=== PATIENT | male | born 1930 | race Caucasian/White ===

== ENCOUNTER 2018-11-10 10:30 | Emergency (ER) | payer MEDICARE ==
--- NOTE | 2018-11-10 11:17 | RAD ---
Left elbow 4 views INDICATION: Fall with left elbow pain COMPARISON: None FINDINGS: No acute fracture or subluxation is evident. There is prominent soft tissue swelling involv ing the posterior soft tissues of the left elbow. No joint capsular distention is evident. The radiocapitellar alignment is noted to be normal. There is enthesopathic change off of the lateral hum eral epicondyle and olecranon process. 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 IMPRESSION: No acute fracture or subluxation demonstrated. Prominent soft tissue swelling overlying t he posterior left elbow. Mild osteoarthrosis of the left elbow.
== END 2018-11-10 11:20 | disposition home or self-care (01) ==
LOC: SCSER 10:30
DX: S50.02XA Contusion of left elbow, initial encounter (principal); I25.2 Old myocardial infarction; E11.9 Type 2 diabetes mellitus without complications; E78.5 Hyperlipidemia, unspecified; I10 Essential (primary) hypertension; Z79.82 Long term (current) use of aspirin; Z79.899 Other long term (current) drug therapy; W22.8XXA Striking against or struck by other objects, initial encounter

== ENCOUNTER 2018-12-02 14:45 | Outpatient (CLI) | payer MEDICARE ==
[2018-12-02 15:12] LABS: #Basophils 0.1 thou/uL (0.0-0.2); #Eosinphils 0.1 thou/uL (0.0-0.7); #Lymphocytes 2.1 thou/uL (1.20-3.40); #Monocytes 0.8 thou/uL (0.11-0.59); #Neutrophils 6.9 thou/uL (1.40-6.50); %Basophils 1.1 % (0.0-1.0); %Eosinophils 0.9 % (0.0-10.0); %Lymphocytes 20.9 % (21.0-51.0); %Monocytes 7.6 % (0.0-10.0); %Neutrophils 69.5 % (42.0-75.0); Hemoglobin 14.4 g/dL (14.0-18.0); Mean Corpuscular HGB CONC 33.6 g/dL (32.0-36.0); Mean Corpuscular Hemoglobin 31.9 pg (27.0-31.0); Mean Corpuscular Volume 94.9 fL (78.0-98.0); Mean Platelet Volume 6.2 fL (7.4-10.4); Platelet Count 323 thou/uL (130-400); RBC Distribution Width 12.4 % (11.5-14.5); Red Blood Cell (RBC) Count 4.52 mill/uL (4.70-6.10); White Blood Cell (WBC) Count 9.9 thou/uL (4.8-10.8)
[2018-12-02 15:16] LABS: Bilirubin Negative (Negative); Blood, Urine Negative (Negative); Clarity Clear (Clear); Glucose, Urine (Dipstick) 100 mg/dL (Negative); Leukocyte Negative (Negative); Nitrite Negative (Negative); Protein, Urine (Dipstick) Trace mg/dL (Neg-Trace)
[2018-12-02 15:25] LABS: ALT (SGPT) 16 U/L (8-55); AST (SGOT) 13 U/L (5-34); Albumin 4.1 g/dL (3.4-4.8); Alkaline Phosphatase 56 U/L (40-150); Anion Gap 13 mmol/L (10-20); BUN (Urea Nitrogen) 14 mg/dL (8.4-25.7); Bilirubin, Total 1.1 mg/dL (0.2-1.2); Calc. Creatinine Clearance 0 mL/min (70-130); Calcium 10.1 mg/dL (7.8-10.44); Carbon Dioxide 30 mmol/L (23-31); Chloride 99 mmol/L (98-107); Estimated GFR-MDRD 67; Globulin 3.6 g/dL (2.4-3.5); Glucose 173 mg/dL (83-110); Magnesium 2.6 mg/dL (1.6-2.6); Potassium 3.9 mmol/L (3.5-5.1); Protein, Total 7.7 g/dL (5.8-8.1); Sodium 138 mmol/L (136-145)
--- NOTE | 2018-12-02 15:34 | RAD ---
CHEST PA AND LATERAL: HISTORY: Cough. FINDINGS: The heart size is normal. The aorta is tortuous. There are plates of linear atelectasis of the lung bases. No lobar consolidation, pneumothoraces, or pleural effusions are seen. There are degenerati ve changes in the spine. IMPRESSION: No radiographic evidence of pneumonia. POS: [facility]
--- NOTE | 2018-12-02 15:36 | CT ---
CT HEAD WITHOUT IV CONTRAST COMPARISON: None HISTORY: Headache and confusion. Patient fell on 11/10/2018 TECHNIQUE: Axial CT imaging at 5 mm intervals from vertex through skull base without contrast FINDINGS: There is increased density related to parenchymal hematoma in the right temporal lobe which measures 6.8 cm x 3.2 cm with associated vasogenic edema. There is evidence of sulcal effacement as well as mass effect on the occipital and temporal horns of the right lateral ventricle. No significant shift of midline structures is appreciated. No other areas of hemorrhage are identified. There are a few low-density areas seen in the periventri cular white matter which are nonspecific but likely reflective of chronic small vessel ischemic changes.There is no hydrocephalus. A mucus retention cyst is present in the left maxillary antrum. Osseous structures appear intact.No calvarial fracture is seen. Vascular calcifications are seen in the carotid siphons and involving the distal vertebral arteries. IMPRESSION: 1. Parenchymal hemorrhage/hematoma in the right temporal lobe with adjacent vasogenic edema and assoc iated mass effect. Follow-up evaluation is recommended to ensure expected evolutionary changes in hemorrhage and exclude possibility of underlying lesion. 2. Above findings discussed with Dr. Jones on 12/02/2018 at 1529 hours. These findings were also disc ussed with Dr. Navarrete in the emergency department on 12/02/2018 at 1531 hours. Patient was transported to the emergency department for further care.
== END 2018-12-02 14:46 | disposition home or self-care (01) ==
LOC: SCSCT 14:45
PROVIDERS: ATTEND Internal Medicine Geriatric Medicine
DX: R51 Headache (principal); R41.0 Disorientation, unspecified; N39.46 Mixed incontinence; G93.6 Cerebral edema; G93.89 Other specified disorders of brain
CPT/HCPCS: 36415; 70450; 71046; 80053; 81003; 83735; 85025; 87086

== ENCOUNTER 2018-12-02 15:42 | Inpatient (IN) | payer MEDICARE ==
[2018-12-02] MEDS ORDERED: hydrALAZINE 25 MG TAB ONE (16:44)
[2018-12-02 16:54] LABS: PTT 34.3 SEC (22.9-36.1); Prothrombin Time 13.3 SEC (12.0-14.7)
--- NOTE | 2018-12-02 17:15 | RAD ---
RADIOGRAPH LUMBAR SPINE 3 VIEWS: DATE: 12/02/2018 HISTORY: 79-year-old male with traumatic low back pain COMPARISON: None FINDINGS: There are 5 lumbar-type vertebrae. Bilateral pedicle screws with vertical bars at L3, L4, L5, and S1. Degenerative retrolisthesis of L2 on L3. Tiny metallic markers for interbody graft material at L3-4 and L5-S1 disc spaces. There is calcification of the L3-4, L4-5, and L5-S1 disc spaces, suggesti ve of successful ankylosis. Moderate disc space narrowing at L2-3. Vertebral body heights are maintained. Laminectomy defects from L3-4 through L5-S1. IMPRESSION: 1) no evidence of acute compression fracture. 2) status post posterior lumbar interbody fusion with hardware at L3-4-5-S1. 3) status post laminectomies from L3-4 through L5-S1. 4) at least moderate degenerative disc disease at L2-3.
[2018-12-03 00:25] VITALS: BMI 25.1
[2018-12-03] MEDS ORDERED: cloNIDine 0.1 MG TAB PO PRN (00:50)
[2018-12-03] MEDS: Acetaminophen 325 MG TAB PO PRN ×3 (01:00→22:16)
[2018-12-03] MEDS ORDERED: hydrALAZINE 20 MG/ML VIAL SLOW IVP SCH (01:00)
[2018-12-03] MEDS ORDERED: Cyclobenzaprine 10 MG TAB PO PRN (04:02)
--- NOTE | 2018-12-03 05:01 | HP ---
PRIMARY CARE DOCTOR: Dr. Carri Jones. CODE STATUS: Full code. TIME OF EXAMINATION: 4:00 a.m. CHIEF COMPLAINT: Headache and change in mental status. HISTORY OF PRESENT ILLNESS: This is an 88-year-old male patient with past medical history of hypertension, obviously the patient was taking his medication two days ago. The patient started having some severe headache as per daughter and also after that, he has been developing gradually more confusion, the patient's symptoms were not getting better. He went to see Dr. Jones who ordered a CT and informed that the patient had brain bleed. The patient was seen by Neurosurgery. The symptoms were severe. They placed the patient in the hospital following Neurosurgery recommendations. REVIEW OF SYSTEMS: The patient is confused, unable to give any history. PAST MEDICAL HISTORY: The patient has a history of hypertension, compliant with medications. PAST SURGICAL HISTORY: Cardiac stent x1 and cholecystectomy. PSYCHIATRIC HISTORY: No previous psych history. SOCIAL HISTORY: Former tobacco smoker, quit more than 10 years ago. FAMILY HISTORY: Reviewed with the daughter. Noncontributory for current presentation. ALLERGIES: NO KNOWN DRUG ALLERGIES REPORTED. MEDICATIONS: 1. Aspirin. 2. Carvedilol. 3. Clonidine. 4. Cyclobenzaprine. 5. Losartan. 6. Simvastatin. 7. Vitamin D2. PHYSICAL EXAMINATION: VITAL SIGNS: On presentation, blood pressure 177/93 with heart rate 77, respiratory rate was 17, temperature 98.3, pain 3/10 and oxygen saturation was 98% on room air. GENERAL APPEARANCE: The patient is alert, confused, not in acute distress. HEENT: Eyes normal. ENT: Moist oral mucosa. Sclerae anicteric. NECK: No JVD. RESPIRATORY: Bilateral air entry. No rales. No wheezes. Symmetric expansion. CARDIOVASCULAR: Normal rate and regular rhythm. No murmurs. No gallop. No edema. ABDOMEN: Soft. Normal bowel sounds. MUSCULOSKELETAL: Baseline range of motion and strength, no tenderness. SKIN: Warm, intact. No pallor. No rash. No redness. Peripheral pulses are present. Capillary refill seems to intact. NEUROLOGIC: Patient is confused, unable to fully explore, but there is no evidence of any significant focal weakness. PSYCH: Unable to explore. The patient is confused. RADIOLOGY: The patient has head CT showing 6.8 cm x 3.1 right temporal parenchymal brain hemorrhage. LABORATORY DATA: Reviewed. The patient has white count 9.9, hemoglobin 14.4, MCV 94.9, with a platelet count of 323. Coagulation, INR 1, PTT 34.3, PT 13.3. Chemistry: Sodium 138, potassium 3.9, chloride 99, carbon dioxide 30, anion gap 13, BUN 14, creatinine 1.0, GFR 67, glucose 173. Hemoglobin 6.4, calcium 10.1, magnesium 2.6, total bilirubin 1.1, AST 13, ALT 16, alkaline phosphatase 56. Serum total protein 7.7. UA was done and was negative. ASSESSMENT AND PLAN: The patient will be placed in the hospital for the following medical problems: 1. Intracranial bleed. The patient is followed by Neurosurgery. We will follow recommendations. The patient is confused. 2. Hypertensive urgency. The patient has blood pressure of 189/101. Blood pressure medications have been reconciled. We will try to keep the blood pressure below 160/100. 3. Deep venous thrombosis prophylaxis. We will place the patient on SCDs. Job ID: [id number]
--- NOTE | 2018-12-03 07:06 | CON ---
DATE OF CONSULTATION: HISTORY OF PRESENT ILLNESS: Mr. Ramirez is very pleasant 88-year-old man who was seeing Dr. Karen pretty at the [facility] primary care office this afternoon for roughly 72 hours or so worth of increased fatigue and slight confusion according to daughter. They ordered a head CT in the outpatient setting in the [facility], which ultimately revealed a large right-sided temporal intracerebral hemorrhage that appears actually to be mostly subacute if not older in acuity in nature. There is already surrounding vasogenic edema and areas of resolution within the hemorrhage site. There is minimal mass effect and minimal if any midline shift associated with this hemorrhage. He does take 325 mg aspirin daily. This will need to be held going forward until resolution of this hemorrhage. He is hypertensive in the department at177/100. Recommendations of Neurosurgery will be 160 systolic. PHYSICAL EXAMINATION: NEUROLOGICAL: From a bedside examination the patient is alert and oriented. He understands the events of the day and where he is at and how he has done here so far. He knows the date of , the month, year. He has a nonfocal neurologic examination with 5/5 strength in the bilateral upper and lower extremities. Facial movements are symmetric. He has no cranial nerve dysfunction that I was able to identify grossly. His speech is fluent and uninhibited. I explained that he has an intracerebral hemorrhage with a rough volume estimation of . This was also discussed with daughter at bedside and they are in understanding of this. Our recommendation would be admission preferably in the hospitalist service for observation and further workup on his hypertension. There is no imminent surgical plan or other interventions from our perspective. I do not believe he needs repeat CT scanning unless there is neurologic decline until four weeks from now. Neurosurgery will continue to follow in the inpatient setting. Job ID: [id number]
[2018-12-03] MEDS ORDERED: Carvedilol 6.25 MG TAB PO SCH ×2 (08:00→10:45)
--- NOTE | 2018-12-03 09:17 | CT ---
CT HEAD WITHOUT IV CONTRAST COMPARISON: 12/02/2018 HISTORY: Intracerebral hemorrhagic stroke TECHNIQUE: Axial CT imaging at 5 mm intervals from vertex through skull base without contrast FINDINGS: As noted on the prior examination, there is increased density related to parenchymal hematoma in the right temporal lobe with associated adjacent edema. The hemorrhage on today's examination measures 6.1 cm x 3 cm with previous measurement obtained of 6.8 cm x 3.2 cm. However, differences in size of parenchymal hemorrhage may be related to slice selection. Subjectively, the area of hemorrhage in the right temporal lobe is not significant changed from the prior exam. Again noted is sulcal effacem ent as well as mild mass effect on the occipital horn of the right lateral ventricle. Low-density focus is again seen in the left thalamus likely due to lacunar infarction of indeterminat e age. Cerebral volume loss and findings suggesting chronic small vessel ischemic changes are again seen. Th ere is no shift of the midline structures. There has been no other interval change compared to prior study. IMPRESSION: Persistent parenchymal hematoma in the right temporal lobe with adjacent edema. Findings could be rel ated to hemorrhagic infarction, but other etiologies for parenchymal hematoma cannot be excluded including underlying lesion. Continued follow-up is recommended to ensure expected evolutionary cantu es in blood products. The parenchymal hematoma and adjacent edema does result in mass effect and sulcal effacement in the right temporal lobe
[2018-12-03] MEDS: Losartan 25 MG TAB PO SCH (09:25)
[2018-12-03] MEDS ORDERED: Labetalol HCl 100 MG/20 ML VIAL SLOW IVP PRN (09:48)
[2018-12-03] MEDS ORDERED: Nitroglycerin 0.4 MG TAB (25 Tab Bottle) PO PRN (10:43)
[2018-12-03] MEDS ORDERED: guaiFENesin ER 600 MG TAB PO SCH (11:00)
[2018-12-03] MEDS ORDERED: Doxycycline 100 MG CAP PO SCH (11:00)
[2018-12-03] MEDS: Carvedilol 6.25 MG TAB PO SCH (17:57)
--- NOTE | 2018-12-03 21:52 | PDOC.PN ---
- Subjective Encounter Start Date: 12/03/18 Encounter Start Time: 09:00 Patient seen and examined for IC hemorrhage. No new focal deficits. No new complaints. No overnight events - Objective Resuscitation Status - Order Detail: 12/03/18 10:43 Resuscitation Status Routine Resuscitation Status: PRTL: Chem only Discussed with: confirmed with daughter NICKOLAS Reviewed: Yes Vital Signs & Weight: Vital Signs (12 hours) Temp Pulse Pulse Pulse Resp BP BP 12/03/18 19:38 99.4 F 76 16 12/03/18 17:57 132/60 12/03/18 15:00 97.2 F L 79 18 12/03/18 13:17 73 77 128/60 12/03/18 11:00 99.4 F 77 16 12/03/18 10:43 BP BP Pulse Ox 12/03/18 19:38 140/80 93 L 12/03/18 17:57 12/03/18 15:00 131/70 94 L 12/03/18 13:17 138/71 12/03/18 11:00 143/77 H 94 L 12/03/18 10:43 94 L Weight Weight 185 lb 4 oz I&O: 12/02/18 12/03/18 12/04/18 06:59 06:59 06:59 Intake Total 420 Balance 420 Result Diagrams: 12/04/18 06:13 12/04/18 06:13 Radiology Reviewed by me: Yes (CT brain - IC bleed) EKG Reviewed by me: Yes (Tele SR, NSVT earlier) Phys Exam - Physical Examination Constitutional: NAD Neck: no JVD Respiratory: no wheezing, no rhonchi Symmetrical, No accessory muscle use Cardiovascular: RRR, no rub no heaves/pulsations Gastrointestinal: soft, non-tender, no distention, positive bowel sounds Musculoskeletal: no edema, pulses present Neurological: non-focal, normal sensation, moves all 4 limbs Dx/Plan - Plan DVT proph w/SCDs IMPRESSION: Intracranial bleed NSVT Acute Bronchitis HTN HLD CKD 2 Impaired glucose tolerance Former smoker Physical deconditioning PLAN: Not on antiplatelet agents due to intracranial bleed Increase Coreg to 12.5 mg BID Cont ARB Cont Neurochecks Add Doxycycline with Mucinex AM labs Echo Cont Tele monitoring SNF Eval Cont PT/OT Chem code confirmed with DPOA - DNR at discharge. Review of Systems - Review of Systems Respiratory: negative: Cough, Dry, Shortness of Breath, Hemoptysis, SOB with Excertion, Pleuritic Pain, Sputum, Wheezing Cardiovascular: negative: chest pain, palpitations, orthopnea, paroxysmal nocturnal dyspnea, edema, light headedness, other Gastrointestinal: negative: Nausea, Vomiting, Abdominal Pain, Diarrhea, Constipation, Melena, Hematochezia, Other - Medications/Allergies Allergies/Adverse Reactions: Allergies Allergy/AdvReac Type Severity Reaction Status Date / Time No Known Allergies Allergy Unverified 12/03/18 00:02 Medications: Current Medications Acetaminophen (Tylenol) 650 mg PO Q4H PRN PRN Reason: Headache/Fever or Pain Last Admin: 12/03/18 09:27 Dose: 650 mg Atorvastatin Calcium (Lipitor) 20 mg PO [facility] Carvedilol (Coreg) 12.5 mg PO BID-[facility] Last Admin: 12/03/18 17:57 Dose: 12.5 mg Cholecalciferol (Vitamin D3) 2,000 units PO DAILY [facility] Last Admin: 12/03/18 09:24 Dose: 2,000 units Clonidine (Catapres) 0.1 mg PO Q4H PRN PRN Reason: SBP>160 Cyclobenzaprine HCl (Flexeril) 10 mg PO HSPRN PRN PRN Reason: Pain Doxycycline Hyclate (Vibramycin) 100 mg PO BID [facility] Guaifenesin (Mucinex) 600 mg PO Q12HR [facility] Labetalol HCl (Normodyne) 10 mg SLOW IVP Q4H PRN PRN Reason: Systolic BP > 160 Losartan Potassium (Cozaar) 100 mg PO DAILY [facility] Last Admin: 12/03/18 09:25 Dose: 100 mg Nitroglycerin (Nitrostat) 0.4 mg PO Q5MIN PRN PRN Reason: Chest Pain Sodium Chloride (Flush - Normal Saline) 10 ml IVF PRN PRN PRN Reason: Saline Flush
[2018-12-03] MEDS: Doxycycline 100 MG CAP PO SCH (22:16)
[2018-12-03] MEDS: Atorvastatin Calcium 20 MG TAB PO SCH (22:16)
[2018-12-03] MEDS: guaiFENesin ER 600 MG TAB PO SCH (22:16)
[2018-12-04 06:41] LABS: #Basophils 0.1 thou/uL (0.0-0.2); #Eosinphils 0.1 thou/uL (0.0-0.7); #Lymphocytes 2.3 thou/uL (1.20-3.40); #Monocytes 0.8 thou/uL (0.11-0.59); #Neutrophils 6.2 thou/uL (1.40-6.50); %Basophils 0.6 % (0.0-1.0); %Eosinophils 1.4 % (0.0-10.0); %Lymphocytes 24.1 % (21.0-51.0); %Monocytes 8.8 % (0.0-10.0); %Neutrophils 65.1 % (42.0-75.0); Hemoglobin 13.5 g/dL (14.0-18.0); Mean Corpuscular HGB CONC 34.9 g/dL (32.0-36.0); Mean Corpuscular Hemoglobin 33.1 pg (27.0-31.0); Mean Platelet Volume 6.9 fL (7.4-10.4); Platelet Count 276 thou/uL (130-400); RBC Distribution Width 11.8 % (11.5-14.5); Red Blood Cell (RBC) Count 4.09 mill/uL (4.70-6.10); White Blood Cell (WBC) Count 9.5 thou/uL (4.8-10.8)
[2018-12-04 07:09] LABS: Anion Gap 13 mmol/L (10-20); BUN (Urea Nitrogen) 17 mg/dL (8.4-25.7); Calc. Creatinine Clearance 65 mL/min (70-130); Calcium 9.5 mg/dL (7.8-10.44); Carbon Dioxide 24 mmol/L (23-31); Chloride 102 mmol/L (98-107); Estimated GFR-MDRD 78; Glucose 135 mg/dL (83-110); Potassium 3.5 mmol/L (3.5-5.1); Sodium 135 mmol/L (136-145)
[2018-12-04] MEDS: Acetaminophen 325 MG TAB PO PRN (09:36)
[2018-12-04] MEDS: Doxycycline 100 MG CAP PO SCH (09:37)
[2018-12-04] MEDS: guaiFENesin ER 600 MG TAB PO SCH (09:37)
[2018-12-04] MEDS: Carvedilol 6.25 MG TAB PO SCH ×2 (09:39→17:25)
[2018-12-04] MEDS: Losartan 25 MG TAB PO SCH (09:40)
--- NOTE | 2018-12-04 18:03 | PDOC.PN ---
- Subjective Encounter Start Date: 12/04/18 Encounter Start Time: 16:00 Patient seen and examined for intracranial bleed. No CP/SOB. No new complaints. No overnight events - Objective Resuscitation Status - Order Detail: 12/03/18 10:43 Resuscitation Status Routine Resuscitation Status: PRTL: Chem only Discussed with: confirmed with daughter NICKOLAS Reviewed: Yes Vital Signs & Weight: Vital Signs (12 hours) Temp Pulse Resp BP BP Pulse Ox 12/04/18 17:25 156/77 H 12/04/18 16:00 97.5 F L 75 20 140/65 95 12/04/18 11:48 98.5 F 93 17 141/76 H 92 L 12/04/18 09:45 91 L 12/04/18 09:39 137/63 12/04/18 08:00 92 L 12/04/18 07:43 99.3 F 75 16 141/78 H 91 L Weight Weight 185 lb 4 oz I&O: 12/03/18 12/04/18 12/05/18 06:59 06:59 06:59 Intake Total 420 300 Balance 420 300 Result Diagrams: 12/04/18 06:13 12/04/18 06:13 EKG Reviewed by me: Yes (Tele SR) Phys Exam - Physical Examination Constitutional: NAD Respiratory: no wheezing, no rhonchi Cardiovascular: RRR, no rub Gastrointestinal: soft, non-tender, positive bowel sounds Musculoskeletal: no edema Neurological: moves all 4 limbs Dx/Plan - Plan DVT proph w/SCDs IMPRESSION: Intracranial bleed NSVT Acute Bronchitis HTN HLD CKD 2 Impaired glucose tolerance Former smoker Physical deconditioning RLS PLAN: Not on antiplatelet agents due to intracranial bleed Cont Coreg/Losartan DC Doxycycline Await Echo Cont Tele monitoring SNF vs Rehab Eval Cont PT/OT Review of Systems - Review of Systems Respiratory: negative: Cough, Dry, Shortness of Breath, Hemoptysis, SOB with Excertion, Pleuritic Pain, Sputum, Wheezing Cardiovascular: negative: chest pain, palpitations, orthopnea, paroxysmal nocturnal dyspnea, edema, light headedness, other - Medications/Allergies Allergies/Adverse Reactions: Allergies Allergy/AdvReac Type Severity Reaction Status Date / Time No Known Allergies Allergy Unverified 12/03/18 00:02 Medications: Current Medications Acetaminophen (Tylenol) 650 mg PO Q4H PRN PRN Reason: Headache/Fever or Pain Last Admin: 12/04/18 09:36 Dose: 650 mg Atorvastatin Calcium (Lipitor) [address] [facility] Last Admin: 12/03/18 22:16 Dose: 20 mg Carvedilol (Coreg) 12.5 mg PO BID-[facility] Last Admin: 12/04/18 17:25 Dose: 12.5 mg Cholecalciferol (Vitamin D3) 2,[address] [facility] Last Admin: 12/04/18 09:37 Dose: 2,000 units Clonidine (Catapres) 0.1 mg PO Q4H PRN PRN Reason: SBP>160 Cyclobenzaprine HCl (Flexeril) 10 mg PO HSPRN PRN PRN Reason: Pain Doxycycline Hyclate (Vibramycin) [address] [facility] Last Admin: 12/04/18 09:37 Dose: 100 mg Guaifenesin (Mucinex) [address] [facility] Last Admin: 12/04/18 09:37 Dose: 600 mg Labetalol HCl (Normodyne) 10 mg SLOW IVP Q4H PRN PRN Reason: Systolic BP > 160 Losartan Potassium (Cozaar) [address] [facility] Last Admin: 12/04/18 09:40 Dose: 100 mg Nitroglycerin (Nitrostat) 0.4 mg PO Q5MIN PRN PRN Reason: Chest Pain Sodium Chloride (Flush - Normal Saline) 10 ml IVF PRN PRN PRN Reason: Saline Flush Last Admin: 12/03/18 22:16 Dose: 10 ml
[2018-12-04] MEDS: Atorvastatin Calcium 20 MG TAB PO SCH (20:15)
[2018-12-05] MEDS: Losartan 25 MG TAB PO SCH (08:41)
[2018-12-05] MEDS: Carvedilol 6.25 MG TAB PO SCH ×2 (08:42→16:38)
[2018-12-05 19:33] VITALS: BP 136/63; TEMP 98.8
[2018-12-05] MEDS: Atorvastatin Calcium 20 MG TAB PO SCH (19:45)
--- NOTE | 2018-12-06 21:12 | DIS ---
DATE OF ADMISSION: 12/02/2018 DATE OF DISCHARGE: 12/05/2018 DISCHARGE DISPOSITION: Inpatient rehabilitation. The patient was seen and examined on the day of discharge. Denies any new complaints. No chest pain, shortness of breath, or palpitations. CODE STATUS: Do not resuscitate. DISCHARGE MEDICATIONS: 1. Carvedilol 12.5 mg b.i.d. 2. Clonidine as needed. 3. Multivitamin 1 tablet daily. 4. Tylenol as needed. 5. Zocor 40 mg at bedtime. 6. Losartan 100 mg daily. 7. Vitamin D2 2000 units daily. 8. Flexeril as needed. BRIEF HOSPITAL COURSE: The patient is an 88-year-old male with hypertension, coronary artery disease, status post stent placement, currently on aspirin, presented to the hospital with altered mentation along with headache. His workup was consistent with intracranial bleed. CT scan of the brain showed 6.8 cm x 3.2 cm hemorrhage in the right temporal lobe with adjacent edema. The patient was evaluated by Neurosurgery. His mentation has significantly improved. He also had short run of nonsustained ventricular tachycardia. For this reason, carvedilol dose has been increased. Echocardiogram showed ejection fraction of 60% to 65% with diastolic dysfunction. Left atrium was moderately to severely dilated. He has been cleared by Neurosurgery for discharge. He was advised to follow up with Neurosurgery Dr. Sellers in 2 to 3 weeks. He will follow up with primary care physician, Dr. Carri Jones in 1 week. FINAL DIAGNOSES: 1. Intracranial bleed. 2. Nonsustained ventricular tachycardia. 3. Suspected acute bronchitis present on admission. 4. Hypertension. 5. Hyperlipidemia. 6. Chronic kidney disease, stage 2. 7. Impaired glucose tolerance. 8. Former smoker. 9. Physical deconditioning. 10. Restless legs syndrome. TIME SPENT: Total time coordinating the discharge of this patient was 35 minutes. Job ID: [id number]
== END 2018-12-05 22:16 | DRG 64 ==
LOC: SCSER 15:42 → 2SE 17:28
PROVIDERS: ADMIT Emergency Medicine; ATTEND Emergency Medicine
DX: I61.1 Nontraumatic intracerebral hemorrhage in hemisphere, cortical (principal); G93.6 Cerebral edema; I47.1 Supraventricular tachycardia; J20.9 Acute bronchitis, unspecified; I16.0 Hypertensive urgency; E78.5 Hyperlipidemia, unspecified; N18.2 Chronic kidney disease, stage 2 (mild); I12.9 Hypertensive chronic kidney disease with stage 1 through stage 4 chronic kidney disease, or unspecified chronic kidney disease; I25.10 Atherosclerotic heart disease of native coronary artery without angina pectoris; G25.81 Restless legs syndrome; Z95.5 Presence of coronary angioplasty implant and graft; Z90.49 Acquired absence of other specified parts of digestive tract; Z87.891 Personal history of nicotine dependence; Z79.82 Long term (current) use of aspirin; Z91.14 Patient's other noncompliance with medication regimen; Z79.899 Other long term (current) drug therapy
CPT/HCPCS: 36415; 70450; 71046; 72100; 80048; 80053; 81003; 83735; 85025; 85610; 85730; 87086; 93306; 94760; J0360